=== PATIENT | male | born 1995 | race Caucasian/White ===

== ENCOUNTER 2017-02-14 09:54 | Emergency (ER) | payer OTHER ==
[~2017-02-14] VITALS: Wt 100.0 kg
[2017-02-14] MEDS ORDERED: CEPHALEXIN 500 MG CAP PO STA (10:13)
[2017-02-14] MEDS ORDERED: TRIMETHOPRIM/SULFAMETHOX (DS) TAB PO STA (10:13)
[2017-02-14] MEDS ORDERED: CEPH-443 PO (10:23)
[2017-02-14] MEDS ORDERED: SULF1TAB31 PO (10:23)
[2017-02-14] MEDS ORDERED: DIPHTH/TET/ACEL PERTUSS (ADULT) 0.5 ML VIAL IM* ONE (10:30)
--- NOTE | 2017-02-14 10:31 | ERD ---
ER Documentation Chief Complaint Date/Time DATE: 02/14/17 TIME: 10:27 Chief Complaint R HAND LACERATION SINCE YESTERDAY, PT GOTTI SNO BLEEDING NOTED. HPI This is a 21-year-old male presenting to the emergency department with a laceration on the volar aspect of his right hand while gardening yesterday, which is greater than 12 hours. Patient states that he cut his hand from the tip of the aloe vera. Patient states the pain is moderate in severity, he denies any restricted range of motion. He denies any foreign body. He does not remember his last tetanus shot. He denies taking any medications for this ROS All systems reviewed and are negative except as per history of present illness. Medications Home Meds Active Scripts Sulfamethoxazole/Trimethoprim* (Bactrim Ds* Tablet) 1 Each Tablet, 1 TAB PO BID , #10 TAB Prov:SANDRA WHALEN PA-C 02/14/17 Cephalexin* (Keflex*) 500 Mg Capsule, 500 MG PO QID for 7 Days, CAP Prov:SANDRA WHALEN PA-C 02/14/17 Allergies Allergies: Coded Allergies: No Known Allergy (Unverified , 02/14/17) PMhx/Soc Medical and Surgical Hx: pt denies Medical Hx, pt denies Surgical Hx Hx Alcohol Use: No Hx Substance Use: No Hx Tobacco Use: No Physical Exam Vitals Vital Signs Date Time Temp Pulse Resp B/P Pulse Ox O2 Delivery O2 Flow Rate FiO2 02/14/17 09:56 98.9 69 20 125/72 99 Physical Exam General: WD/WN, in no apparent distress, non-toxic appearing HENT: NC/AT Eyes: Conjunctiva normal Neck: Supple Pulm: Normal labored breathing CV: Good capillary refill GI: Non-distended, no guarding Back: No masses Ext: No clubbing, cyanosis, or edema Neuro: Moves on all fours, no neuro deficits, sensation intact Skin: 2cm laceration at proximal base of 4th and 5th digit on volar aspect of the right hand Psych: Normal mood Results 24 hrs Current Medications Medications (Trade) Dose Ordered Sig/Arnulfo Route PRN Reason Start Time Stop Time Status Last Admin Dose Admin Cephalexin (Keflex) 500 mg ONCE STAT PO 02/14/17 10:13 02/14/17 10:14 DC 02/14/17 10:20 Trimethoprim/ Sulfamethoxazole (Bactrim (Ds)) 1 tab ONCE STAT PO 02/14/17 10:13 02/14/17 10:14 DC 02/14/17 10:20 Diphtheria/ Tetanus/Acell Pertussis (Adacel) 0.5 ml ONCE ONCE IM* 02/14/17 10:30 02/14/17 10:31 02/14/17 10:21 Procedures/MDM This is a 21-year-old male presenting to the emergency department with a laceration to the volar aspect of his right hand from an aloe vera plant yesterday. This is greater than a 12 hour period. There is no evidence of any active bleeding or foreign body. No evidence of arterial, tendon, nerve injury. No evidence of any fracture. Due to the risk of infection and a laceration that was greater than the 12 hour window it is best to not suture the laceration. In the ED the laceration was cleansed with copious amount of normal saline and one Steri-Strip was applied. In the ED patient was given Keflex and Bactrim for prophylaxis. Patient was given tetanus shot in the ED. Patient is neurovascular intact and hematocele to be discharged home with precautions to return to the emergency department for any worsening signs or symptoms. He understands and agrees with this plan Departure Diagnosis: Primary Impression: Laceration Condition: Stable Patient Instructions: Laceration, Hand Referrals: [facility] (PCP) Additional Instructions: FOLLOW UP WITH YOUR PRIMARY CARE PHYSICIAN TOMORROW.Return to this facility if you are not improving as expected. Take all medicines as directed. Return to this facility if you are not improving as expected. SANDRA WHALEN PA-C Feb 14, 2017 10:31
== END 2017-02-14 10:37 | disposition home or self-care (01) ==
LOC: FTE 09:54
DX: S61.411A Laceration without foreign body of right hand, initial encounter (principal); W26.8XXA Contact with other sharp object(s), not elsewhere classified, initial encounter; Y92.007 Garden or yard of unspecified non-institutional (private) residence as the place of occurrence of the external cause; Z23 Encounter for immunization
CPT/HCPCS: 90715; Z7610; 90471